=== PATIENT | male | born 1975 | race Caucasian/White ===

== ENCOUNTER 2022-11-18 15:26 | Emergency (ER) | payer MEDICAID ==
[~2022-11-18] VITALS: Ht 160 cm; Wt 65.8 kg
[2022-11-18 15:26] VITALS: BP_SYST 110
--- NOTE | 2022-11-18 15:36 | NUR ---
ER at bedside examining patient.
--- NOTE | 2022-11-18 15:40 | NUR ---
BROUGHT BACK TO BED #8 AND TRIAGED. REPORT GIVEN TO GLEN
[2022-11-18] MEDS ORDERED: ONDANSETRON 4 MG ODT TAB PO ONE (15:45)
--- NOTE | 2022-11-18 15:50 | NUR ---
Pt BIB self. C/O abdominal pain. Pain 03/19. Pt states to have ate frozen food dinner last night and started "feeling sick" afterwards. Pt denies SOB, dirrahea, and chest pain. Pt states last episode of emesis 1400 and hasnt been able to hold down a meal. Pt states nausea. Pt afebrile. VSS. Skin dry and intact. AAOX4. Pt speaking full complete sentences. Pt in bed with side rails up.
[2022-11-18 16:40] LABS: BASOPHILS % (AUTO) 0.3 % (0.0-2.0); EOSINOPHILS # (AUTO) 0.2 K/uL (0.0-0.4); EOSINOPHILS % (AUTO) 2.1 % (0.0-4.0); HEMATOCRIT 45.2 % (36-54); HEMOGLOBIN 15.4 g/dL (14.0-18.0); LYMPHOCYTES # (AUTO) 0.4 K/uL (1.0-5.5); LYMPHOCYTES % (AUTO) 5.3 % (20.5-51.5); MEAN CORPUSCULAR HEMOGLOBIN 29 pg (27-31); MEAN CORPUSCULAR HGB CONC 34 % (32-36); MEAN CORPUSCULAR VOLUME 86 fL (79.0-98.0); MONOCYTES # (AUTO) 0.5 K/uL (0.0-1.0); MONOCYTES % (AUTO) 5.9 % (1.7-9.3); NEUTROPHILS # (AUTO) 7.2 K/uL (1.8-7.7); NEUTROPHILS % (AUTO) 86.4 % (40.0-70.0); PLATELET COUNT (AUTO) 272 K/uL (130-430); RED BLOOD CELL COUNT(AUTO) 5.26 MIL/uL (4.2-6.2); RED CELL DISTRIBUTION WIDTH 12.9 % (9.0-15.0); WHITE BLOOD COUNT (AUTO) 8.4 K/uL (4.8-10.8)
[2022-11-18 16:42] LABS: ACETONE, SERUM NEGATIVE (NEGATIVE)
[2022-11-18 16:45] LABS: ANION GAP 12 (5-15); CALCIUM 8.5 mg/dL (8.4-11.0); CHLORIDE 99 mmol/L (98-107); CREATININE 1.02 mg/dL (0.55-1.30); GFR AFRICAN AMERICAN 102 mL/min (>90); GLUCOSE 116 mg/dL (70-99); UREA NITROGEN, BLOOD 19 mg/dL (8-21)
[2022-11-18 16:48] LABS: ALANINE AMINOTRANSFERASE 23 U/L (12-78); ALBUMIN 3.8 g/dL (3.4-4.8); AMYLASE 53 U/L (0-100); ASPARTATE AMINOTRANSFERASE 18 U/L (10-37); C-REACTIVE PROTEIN QUANT 2.6 mg/dL (0-0.5); LIPASE 83 U/L (73-393); TOTAL BILIRUBIN 0.8 mg/dL (0.0-1.0)
[2022-11-18] MEDS ORDERED: IBUP-1971 PO (17:50)
[2022-11-18] MEDS ORDERED: ONDA-8 TL (17:50)
[2022-11-18 18:46] VITALS: BP_SYST 101
--- NOTE | 2022-11-18 18:47 | NUR ---
Patient given written and verbal discharge instructions and verbalizes understanding. ER MD discussed with patient the results and treatment provided. Patient in stable condition. ID arm band removed. Rx of IBUPROFEN AND ZOFRAN given. Patient educated on pain management and to follow up with PMD. Pain Scale 0/10. Opportunity for questions provided and answered. Medication side effect fact sheet provided.
[2022-11-18 19:02] LABS: BILIRUBIN,URINE NEGATIVE (NEGATIVE); BLOOD, URINE NEGATIVE (NEGATIVE); CLARITY/URINE SL CLOUDY (CLEAR); COLOR,URINE YELLOW (YELLOW); GLUCOSE,URINE TRACE (NEGATIVE); KETONES,URINE TRACE (NEGATIVE); LEUKOCYTE ESTERASE ,URINE NEGATIVE (NEGATIVE); NITRITE, URINE NEGATIVE (NEGATIVE); PROTEIN URINE TRACE (NEGATIVE)
[2022-11-18 19:19] LABS: BACTERIA,URINE None Seen /HPF (None Seen); RBC,URINE NONE SEEN /HPF (0-3); WBC,URINE 0-3 /HPF (0-3)
[2022-11-18 19:21] LABS: MUCUS,URINE None Seen /LPF (None Seen)
== END 2022-11-18 18:48 | disposition home or self-care (01) ==
LOC: SED 15:26
DX: A05.9 Bacterial foodborne intoxication, unspecified (principal); R10.9 Unspecified abdominal pain; R11.10 Vomiting, unspecified; R19.7 Diarrhea, unspecified; Z88.0 Allergy status to penicillin; Z79.899 Other long term (current) drug therapy
CPT/HCPCS: 99284; 74176; 80053; 81000; 82009; 82150; 83690; 85025; 86140; 36415; 76376; 83605; Q0162